=== PATIENT | female | born 1965 | race Caucasian/White ===

== ENCOUNTER 2020-11-19 09:30 | Outpatient (REF) | payer BC, SELFPAY ==
--- NOTE | ~2020-11-19 | MM_ITS ---
EXAMINATION: MM SCREENING DIGITAL BREAST TOMOSYNTHESIS, BILATERAL CLINICAL INFORMATION: Screening. Asymptomatic. The lifetime risk of breast cancer based on the Tyrer-Cuzick Model is 9.8%. COMPARISON: Mammography: 06/28/2019 and studies dating back to 06/26/2007. TECHNIQUE: Digital breast tomosynthesis is performed in both the craniocaudal and mediolateral oblique views along with computer-aided detection (CAD). Synthesized 2D images are generated from the tomosynthesis. FINDINGS: The breasts are heterogeneously dense, which may obscure small masses (ACR BI-RADS breast composition Category c). There is a stable parenchymal pattern of the right breast with no new abnormal dominant mass or suspicious grouping of microcalcifications. Within the deep superior aspect of the left breast, there is a density which has been present to some degree in the past but appears more prominent on today's study, measuring approximately 8 x 5 mm in size, lying approximately 6.5 cm from the nipple. Spot compression view and exaggerated craniocaudal view suggested. MM/MM tomosynthesis screening BI IMPRESSION: Left breast density deep superior aspect for further evaluation as described. ASSESSMENT: BI-RADS 0: Incomplete - Need Additional Imaging Evaluation RECOMMENDATION: 1. Additional views of the left breast. 2. Targeted ultrasound if warranted after review of the additional views. 3. Radiology department staff will contact the patient for additional imaging.
== END 2020-11-19 09:31 | disposition home or self-care (01) ==
LOC: HO.MAMMO 09:30
PROVIDERS: PCP Internal Medicine; Visit Provider Internal Medicine
DX: Z12.31 Encounter for screening mammogram for malignant neoplasm of breast (principal)
CPT/HCPCS: 77063; 77067

== ENCOUNTER 2020-11-27 07:36 | Outpatient (REF) | payer BC, SELFPAY ==
--- NOTE | ~2020-11-27 | MM_ITS ---
EXAMINATION: MM DIAGNOSTIC DIGITAL BREAST TOMOSYNTHESIS, LEFT TARGETED LEFT BREAST ULTRASOUND CLINICAL INFORMATION: Left breast density superiorly. Sister with breast cancer at 40. Sister with ovarian cancer at 39. COMPARISON: Mammography: 11/19/2020 and studies dating back to 08/17/2010 TECHNIQUE: Digital breast tomosynthesis is performed. 2D images are generated from the tomosynthesis. The following views are obtained: 90-degree mediolateral spot compression and exaggerated craniocaudal view. Targeted left breast ultrasound. FINDINGS: The breasts are heterogeneously dense, which may obscure small masses (ACR BI-RADS breast composition Category c). Additional imaging demonstrates an approximately 7 x 3 mm irregularly-marginated density with question of calcifications. This lies approximately 7 cm from the nipple in the upper outer aspect of the left breast. Targeted left breast ultrasound did not demonstrate any abnormal cystic or solid mass. No region of abnormal distal sound shadowing was appreciated. Stereotactic biopsy is recommended. Results are discussed with the patient at time of visit. MM/MM tomosynthesis added views L IMPRESSION: Persistent abnormality about the deep superior aspect of the left breast not identified on ultrasound and for which stereotactic core biopsy is recommended. ASSESSMENT: BI-RADS 4: Suspicious RECOMMENDATION: Stereotactic core biopsy left breast. Referring Polina at provider's office notified of the above recommendation.
--- NOTE | ~2020-11-27 | US_ITS ---
EXAMINATION: US DIAGNOSTIC ULTRASOUND BREAST, LEFT CLINICAL INFORMATION: Density deep superior aspect left breast. COMPARISON: Mammography of November 27, 2020 and studies dating back to August 17, 2010. TECHNIQUE: Ultrasound of the breast is performed with real-time bower scale imaging and color Doppler. FINDINGS: Targeted left breast ultrasound did not demonstrate any abnormal cystic or solid mass. No region of abnormal distal sound shadowing was appreciated. Stereotactic biopsy is recommended. Results are discussed with the patient at time of visit. US/US breast LT limited IMPRESSION: Persistent abnormality about the deep superior aspect of the left breast not identified on ULTRASOUND and for which stereotactic core biopsy is recommended. ASSESSMENT: BI-RADS 4: Suspicious RECOMMENDATION: Stereotactic core biopsy left breast.
== END 2020-11-27 07:37 | disposition home or self-care (01) ==
LOC: HO.MAMMO 07:36
PROVIDERS: Visit Provider Internal Medicine
DX: R92.2 Inconclusive mammogram (principal); Z80.3 Family history of malignant neoplasm of breast
CPT/HCPCS: 76642; 77061; 77065

== ENCOUNTER 2022-05-06 09:49 | Outpatient (REF) | payer BC, SELFPAY ==
[2022-05-06 11:34] LABS: MANUAL DIFF FLAG NO
[2022-05-06 11:43] LABS: Basophils Percent Auto 0.7 % (0-2); Eosinophils Absolute Auto 0.1 X10*3/uL (0.0-0.4); Eosinophils Percent Auto 2.5 % (0-4); Hematocrit 43.7 % (37.0-47.0); Hemoglobin 13.9 g/dl (12.0-16.0); Imm Gran Abs Auto 0.01 X10*3/uL (0.00-0.03); Imm Gran Pct Auto 0.2 % (0.0-0.4); Lymphocytes Absolute Auto 1.7 X10*3/uL (1.2-4.9); Lymphocytes Percent Auto 39.1 % (20-40); Mean Corpuscular HGB Conc 31.8 g/dl (31.0-35.0); Mean Corpuscular Hemoglobin 27.5 pg (27.0-33.0); Mean Corpuscular Volume 86.5 fL (80.0-98.0); Mean Platelet Volume 9.4 fL (9.4-12.3); Monocytes Absolute Auto 0.4 X10*3/uL (0.1-1.2); Monocytes Percent Auto 8.5 % (2-11); Neutrophils Absolute Auto 2.2 x10*3/uL (2.0-8.3); Platelet Count 252 X10*3/uL (160-400); Red Blood Count 5.05 X10*6/uL (4.20-5.50); Red Cell Distribution Width 13.5 % (11.0-16.0); White Blood Count 4.5 X10*3/uL (4.8-10.8)
[2022-05-06 12:12] LABS: Alanine Aminotransferase 18 U/L (0-31); Albumin Level 4.8 g/dL (3.5-5.0); Alkaline Phosphatase 67 U/L (39-117); Anion Gap 17 (12-20); Aspartate Amino Transferase 27 U/L (5-31); Bilirubin Total 0.6 mg/dL (0.0-1.0); Blood Urea Nitrogen 20 mg/dL (9-16); Calcium 9.6 mg/dL (8.4-10.2); Carbon Dioxide 26 mmol/L (22-29); Chloride 102 mmol/L (96-108); Cholesterol 236 mg/dL; Estimated Glomerular Filt Rate > 60; Glucose Fasting 88 mg/dL (60-99); HDL Cholesterol 73 mg/dL; LDL Cholesterol Calculated 147 mg/dl; Potassium 4.5 mmol/L (3.3-5.1); Sodium 140 mmol/L (135-145); Total Protein 7.2 g/dL (6.5-8.0); Triglycerides 83 mg/dL
[2022-05-11 04:33] LABS: Lipoprotein A 250 nmol/L (<75)
== END 2022-05-06 09:50 | disposition home or self-care (01) ==
LOC: HO.HMGCLDS 09:49
PROVIDERS: PCP Internal Medicine; Visit Provider Internal Medicine
DX: Z00.00 Encounter for general adult medical examination without abnormal findings (principal); E78.5 Hyperlipidemia, unspecified
CPT/HCPCS: 36415; 80053; 80061; 83695; 85025

== ENCOUNTER 2023-06-14 12:37 | Outpatient (AMB) | payer BC, SELFPAY ==
--- NOTE | 2023-06-14 13:05 | A.OFFPC_ITS ---
Vital Signs 06/14/23 13:07 Height 5 ft 2.5 in Weight 133 lb BMI 23.9 BP 108/70 Blood Pressure Location Lt brachial Position Sitting Pulse 47 L Pulse Source Pulse Oximeter Pulse Oximetry (%) 99 Oxygen Delivery Method Room Air Intake Visit Reasons: Annual PE Intake Note: Pt is here today for PE. Allergies No Known Allergies Allergy (Verified 06/14/23 13:07) Medication List - Last Reconciled 06/14/23 by Nica Jennings MD multivitamin 1 tab PO DAILY Tobacco use date assessed: 06/14/23 Dental Screening Dental Screen Date: 06/14/23 Did you have a dental visit in the last 12 months?: Yes Did you have a dental problem in the last 6 months where you did not have access to dental care?: No Was dental information given to patient?: Patient has dentist HPI Annual PE HPI Details Patient presents for physical PFSH Medical History Breast density Family History Mother Alzheimer disease Brother Substance use disorder Father Substance use disorder Social History (Updated 06/14/23 @ 13:26 by Nica Jennings MD) 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 1. Little interest or pleasure in doing things: not at all 2. Feeling down, depressed, or hopeless: not at all 3. Trouble falling or staying asleep, or sleeping too much: not at all 4. Feeling tired or having little energy: not at all 5. Poor appetite or overeating: not at all 6. Feeling bad about yourself - or that you are a failure or have let yourself or your family down: not at all 7. Trouble concentrating on things, such as reading the newspaper or watching television: not at all 8. Moving or speaking so slowly that other people could have noticed. Or the opposite - being so fidgety or restless that you have been moving around a lot more than usual: not at all 9. Thoughts that you would be better off or of hurting yourself in some way: not at all Total score: 0 Depression Screening Interpretation: Negative Depression Screening Done: Yes Source: Developed by Drs. Izaiah Lopze, Yahaira Roberts, Dayton Blair and colleagues, with an educational manuelito from [employer]. Thrive Questionnaire Date Thrive assessed: 06/14/23 I am a: Patient What is your living situation today?: I have a steady place to live Within the past 12 months, did the food you bought not last and you didn't have the money to get more?: Never true Within the past 12 months, did you worry whether your food would run out before you got money to buy more?: Never true Do you have trouble paying for medicines?: No Do you have trouble getting transportation to medical appointments?: No Do you have trouble paying your heating and electricity bill?: No Do you have trouble taking care of your child, family member or friend?: No Do you have trouble with day-to-day activities such as bathing, preparing meals, shopping, managing finances, etc.?: No Are you currently unemployed and looking for a job?: No Are you interested in more education?: No Please select the resources that you would like help with: None Currently or been in a relationship where the following occur: no concerns reported AUDIT C Alcohol Use Questionnaire (AUDIT-C) 1. How often do you have a drink containing alcohol?: 2-4 times a month 2. How many drinks containing alcohol do you have on a typical day when you are drinking?: 1 or 2 3. How often do you have six or more drinks on one occasion?: Never Total Score: 2 RIK-7 AMB Questionnaire RIK-7 Date RIK - 7 assessed: 06/14/23 Feeling nervous, anxious, or on edge: 0 = Not at all Not being able to stop or control worryin = Not at all Worrying too much about different things: 0 = Not at all Trouble relaxin = Not at all Being so restless that it is hard to sit still: 0 = Not at all Becoming easily annoyed or irritable: 0 = Not at all Feeling afraid as if something awful might happen: 0 = Not at all Total RIK-7 score (0-4 normal; 5-9 mild; 10-14 moderate; 15-21 severe): 0 Source: Developed by Drs. Izaiah Lopez, Yahaira Roberts, Dayton Blair and colleagues, with an educational manuelito from [employer]. Review of Systems Const All systems reviewed & are unremarkable except as noted in HPI and below Reports no additional complaints Eyes Reports no additional complaints ENT Reports no additional complaints Card Reports no additional complaints Resp Reports no additional complaints GI Reports no additional complaints Reports no additional complaints Physical exam (Primary Care) Vital Signs: Last Vital Signs Pulse 47 L 06/14/23 13:07 BP 108/70 06/14/23 13:07 Pulse Ox 99 06/14/23 13:07 Oxygen Delivery Method Room Air 06/14/23 13:07 BMI result Body Mass Index 23.9 Tobacco/Smoking Status: Tobacco use Status Tobacco use date assessed 06/14/23 06/14/23 13:11 Patient Tobacco Use Status Never used Tobacco 06/14/23 13:11 e-Cigarette/Vaping Use Never Used 06/14/23 13:06 PHQ-9: PHQ-9 Score PHQ-9: Total score 0 06/14/23 13:11 Depression Screening Interpretation: Negative Thrive Assessment: Date of Thrive Assessment Date Thrive assessed 06/14/23 06/14/23 13:11 Currently or been in a relationship where the following occur: no concerns reported Const General: no acute distress HENMT Head: Yes normal to inspection Ears: hearing grossly normal bilaterally Face and sinus: Yes normal facial exam Mouth: Normal oral and palatal mucosa present Throat: Yes posterior oropharynx normal Eyes General: appearance normal, both eyes and all related structures Neck Neck: Yes no lymphadenopathy and Yes supple Resp Effort & Inspection: normal respiratory effort Auscultation: clear to auscultation bilaterally Cardio Rhythm: regular rhythm Heart sounds: S1 normal heart sound present and S2 normal heart sound present GI Inspection: Yes normal to inspection Palpation (GI): Soft to palpation Percussion: Yes normal to percussion Auscultation: normal bowel sounds Assessment and Plan Assessment & Plan (1) Hyperlipemia: Code(s): E78.5 - Hyperlipidemia, unspecified Plan: Continue low-cholesterol diet patient will return for fasting labs (2) Annual physical exam: Code(s): Z00.00 - Encounter for general adult medical examination without abnormal findings Plan: Well-balanced diet regular physical activity, she is up-to-date with 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 Return in 1 year (3) Hx of screening mammography: Comment: [facility] Code(s): Z92.89 - Personal history of other medical treatment (4) Hx of colonoscopy: Comment: at 51 normal Code(s): Z98.890 - Other specified postprocedural states Orders: Orders Lipid Panel Today E78.5 - Hyperlipidemia, unspecified, Z00.00 - Encounter for general adult medical examination without abnormal findings Comprehensive [place]. Panel Fast Today E78.5 - Hyperlipidemia, unspecified, Z00.00 - Encounter for general adult medical examination without abnormal findings Vitamin D 25-OH Total Today E78.5 - Hyperlipidemia, unspecified, Z00.00 - Encounter for general adult medical examination without abnormal findings Complete Blood Count Auto Diff Today E78.5 - Hyperlipidemia, unspecified, Z00.00 - Encounter for general adult medical examination without abnormal findings TSH reflex Free T4 Today E78.5 - Hyperlipidemia, unspecified, Z00.00 - Encounter for general adult medical examination without abnormal findings Coding Level of Care Code Est Pt Prev Care 40-64y(31565) Diagnoses Hyperlipemia E78.5 Annual physical exam Z00.00 Hx of screening mammography Z92.89 Hx of colonoscopy Z98.890
[2023-06-14 13:07] VITALS: BP 108/70; PULSE 47; O2SAT 99; BMI 23.9
== END 2023-06-14 14:01 | disposition home or self-care (01) ==
PROVIDERS: PCP Internal Medicine; Visit Provider Internal Medicine
DX: E78.5 Hyperlipidemia, unspecified (principal); Z00.00 Encounter for general adult medical examination without abnormal findings; Z92.89 Personal history of other medical treatment; Z98.890 Other specified postprocedural states
CPT/HCPCS: 99396

== ENCOUNTER 2023-06-23 09:39 | Outpatient (REF) | payer BC, SELFPAY ==
[2023-06-23 11:12] LABS: MANUAL DIFF FLAG NO
[2023-06-23 11:14] LABS: Basophils Percent Auto 0.6 % (0-2); Eosinophils Absolute Auto 0.1 X10*3/uL (0.0-0.4); Eosinophils Percent Auto 1.8 % (0-4); Hematocrit 39.5 % (37.0-47.0); Hemoglobin 12.6 g/dl (12.0-16.0); Imm Gran Abs Auto 0.02 X10*3/uL (0.00-0.03); Imm Gran Pct Auto 0.4 % (0.0-0.4); Lymphocytes Absolute Auto 1.6 X10*3/uL (1.2-4.9); Lymphocytes Percent Auto 32.5 % (20-40); Mean Corpuscular HGB Conc 31.9 g/dl (31.0-35.0); Mean Corpuscular Hemoglobin 28.3 pg (27.0-33.0); Mean Corpuscular Volume 88.8 fL (80.0-98.0); Mean Platelet Volume 9.8 fL (9.4-12.3); Monocytes Absolute Auto 0.3 X10*3/uL (0.1-1.2); Monocytes Percent Auto 5.9 % (2-11); Neutrophils Absolute Auto 2.9 x10*3/uL (2.0-8.3); Neutrophils Percent Auto 58.8 % (45-73); Platelet Count 253 X10*3/uL (160-400); Red Blood Count 4.45 X10*6/uL (4.20-5.50); Red Cell Distribution Width 13.2 % (11.0-16.0); White Blood Count 4.9 X10*3/uL (4.8-10.8)
[2023-06-23 11:34] LABS: Alanine Aminotransferase 16 U/L (0-31); Albumin Level 4.4 g/dL (3.5-5.0); Alkaline Phosphatase 60 U/L (39-117); Anion Gap 10 (12-20); Aspartate Amino Transferase 30 U/L (5-31); Bilirubin Total 0.7 mg/dL (0.0-1.0); Blood Urea Nitrogen 20 mg/dL (9-16); Calcium 9.7 mg/dL (8.4-10.2); Carbon Dioxide 28 mmol/L (22-29); Chloride 106 mmol/L (96-108); Cholesterol 239 mg/dL (<200); Estimated Glomerular Filt Rate > 60; Glucose Fasting 88 mg/dL (60-99); HDL Cholesterol 64 mg/dL (>40); LDL Cholesterol Calculated 156 mg/dL (<100); Potassium 4.3 mmol/L (3.3-5.1); Sodium 140 mmol/L (135-145); Total Protein 6.6 g/dL (6.5-8.0); Triglycerides 98 mg/dL (<150)
[2023-06-23 11:49] LABS: TSH reflex Free T4 1.87 uIU/mL (0.32-4.0); Vitamin D 25-OH Total 42.3 ng/mL (>30)
[2023-06-29 09:57] LABS: Lipoprotein A 187 nmol/L (<75)
== END 2023-06-23 09:40 | disposition home or self-care (01) ==
LOC: HO.HMGCLDS 09:39
PROVIDERS: PCP Internal Medicine; Visit Provider Internal Medicine
DX: Z00.00 Encounter for general adult medical examination without abnormal findings (principal); E78.5 Hyperlipidemia, unspecified
CPT/HCPCS: 36415; 80053; 80061; 82306; 83695; 84443; 85025

== ENCOUNTER 2023-12-26 08:33 | Outpatient (REF) | payer BC, SELFPAY ==
--- NOTE | ~2023-12-26 | XR_ITS ---
EXAMINATION: XR CHEST CLINICAL INFORMATION: Encounter for general adult medical examination without abnorma COMPARISON: None available. TECHNIQUE: Frontal view of the chest was obtained. FINDINGS: The cardiomediastinal silhouette is within normal limits. The lungs are well expanded. No consolidation. No effusion or pneumothorax. The upper abdomen is unremarkable. XR/XR chest 1V IMPRESSION: No acute cardiopulmonary findings.
== END 2023-12-26 08:34 | disposition home or self-care (01) ==
LOC: HO.MAMMO 08:33
PROVIDERS: Absent Provider Obstetrics & Gynecology; PCP Internal Medicine; Visit Provider Internal Medicine
DX: Z12.31 Encounter for screening mammogram for malignant neoplasm of breast (principal); Z87.01 Personal history of pneumonia (recurrent)
CPT/HCPCS: 71045; 77063; 77067

== ENCOUNTER → 2023-12-26 08:45 | Outpatient (BNV) | payer BC, SELFPAY | PROVIDERS: Absent Provider Obstetrics & Gynecology; PCP Internal Medicine; Visit Provider Radiology Diagnostic Radiology | DX: Z12.31 Encounter for screening mammogram for malignant neoplasm of breast (principal) | CPT/HCPCS: 77063; 77067 ==

== ENCOUNTER 2024-01-04 10:54 | Outpatient (AMB) | payer BC, SELFPAY ==
--- NOTE | 2024-01-04 11:19 | MHC.PC.OV ---
Vital Signs 01/04/24 11:21 Height 5 ft 2.5 in Weight 136 lb BMI 24.5 BP 104/60 Blood Pressure Location Rt brachial Position Sitting Pulse 53 Pulse Source Pulse Oximeter Pulse Oximetry (%) 98 Oxygen Delivery Method Room Air Intake Visit Reasons: F/U pneumonia Intake Note: Pt is here today for a follow up visit on pneumonia. Allergies No Known Allergies Allergy (Verified 01/04/24 11:22) Medication List - Last Reconciled 01/04/24 by Nica Jennings MD multivitamin 1 tab PO DAILY Tobacco use date assessed: 01/04/24 Dental Screening Dental Screen Date: 01/04/24 Did you have a dental visit in the last 12 months?: Yes Did you have a dental problem in the last 6 months where you did not have access to dental care?: No Was dental information given to patient?: Patient has dentist HPI F/U pneumonia HPI Details Pt presents for f/u URI and pneumonia diagnosed 5 weeks ago at urgent care. She was treated with Augmentin Z-Rudolph and prednisone. Patient is feeling better but still with some fatigue when working out at the gym. She denies cough shortness of breath PND night sweats. 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 1. Little interest or pleasure in doing things: not at all 2. Feeling down, depressed, or hopeless: not at all 3. Trouble falling or staying asleep, or sleeping too much: not at all 4. Feeling tired or having little energy: not at all 5. Poor appetite or overeating: not at all 6. Feeling bad about yourself - or that you are a failure or have let yourself or your family down: not at all 7. Trouble concentrating on things, such as reading the newspaper or watching television: not at all 8. Moving or speaking so slowly that other people could have noticed. Or the opposite - being so fidgety or restless that you have been moving around a lot more than usual: not at all 9. Thoughts that you would be better off or of hurting yourself in some way: not at all Total score: 0 Depression Screening Interpretation: Negative Depression Screening Done: Yes Source: Developed by Drs. Izaiah Lopez, Yahaira Roberts, Dayton Blair and colleagues, with an educational manuelito from [employer]. Thrive Questionnaire Date Thrive assessed: 01/04/24 I am a: Patient What is your living situation today?: I have a steady place to live Within the past 12 months, did the food you bought not last and you didn't have the money to get more?: Never true Within the past 12 months, did you worry whether your food would run out before you got money to buy more?: Never true Do you have trouble paying for medicines?: No Do you have trouble getting transportation to medical appointments?: No Do you have trouble paying your heating and electricity bill?: No Do you have trouble taking care of your child, family member or friend?: No Do you have trouble with day-to-day activities such as bathing, preparing meals, shopping, managing finances, etc.?: No Are you currently unemployed and looking for a job?: No Are you interested in more education?: No Please select the resources that you would like help with: None THRIVE Score: 0 AUDIT C Alcohol Use Questionnaire (AUDIT-C) 1. How often do you have a drink containing alcohol?: 2-3 times a week 2. How many drinks containing alcohol do you have on a typical day when you are drinking?: 1 or 2 3. How often do you have six or more drinks on one occasion?: Never Total Score: 3 RIK-7 AMB Questionnaire RIK-7 Date RIK - 7 assessed: 01/04/24 Feeling nervous, anxious, or on edge: 0 = Not at all Not being able to stop or control worryin = Not at all Worrying too much about different things: 0 = Not at all Trouble relaxin = Not at all Being so restless that it is hard to sit still: 0 = Not at all Becoming easily annoyed or irritable: 0 = Not at all Feeling afraid as if something awful might happen: 0 = Not at all Total RIK-7 score (0-4 normal; 5-9 mild; 10-14 moderate; 15-21 severe): 0 Source: Developed by Drs. Izaiah Lopez, Yahaira Roberts, Dayton Blair and colleagues, with an educational manuelito from [employer]. Review of Systems Const All systems reviewed & are unremarkable except as noted in HPI and below ENT Reports no additional complaints Card Reports no additional complaints Resp Reports no additional complaints GI Reports no additional complaints Physical exam (Primary Care) Vital Signs: Last Vital Signs Pulse 53 01/04/24 11:21 BP 104/60 01/04/24 11:21 Pulse Ox 98 01/04/24 11:21 Oxygen Delivery Method Room Air 01/04/24 11:21 BMI result Body Mass Index 24.5 Tobacco/Smoking Status: Tobacco use Status Tobacco use date assessed 01/04/24 01/04/24 11:25 Patient Tobacco Use Status Never used Tobacco 01/04/24 11:25 e-Cigarette/Vaping Use Never Used 01/04/24 11:25 PHQ-9: PHQ-9 Score PHQ-9: Total score 0 01/04/24 11:25 Depression Screening Interpretation: Negative Thrive Assessment: Date of Thrive Assessment Date Thrive assessed 01/04/24 01/04/24 11:25 Const General: no acute distress HENMT Head: Yes normal to inspection Mouth: Normal oral and palatal mucosa present Eyes General: appearance normal, both eyes and all related structures Neck Neck: Yes no lymphadenopathy and Yes supple Resp Effort & Inspection: normal respiratory effort Auscultation: clear to auscultation bilaterally Cardio Rhythm: regular rhythm Heart sounds: S1 normal heart sound present and S2 normal heart sound present Assessment and Plan Assessment & Plan (1) Annual physical exam: Code(s): Z00.00 - Encounter for general adult medical examination without abnormal findings (2) History of pneumonia: Code(s): Z87.01 - Personal history of pneumonia (recurrent) Plan: Repeated chest x-ray results are pending Orders: Orders Complete Blood Count Auto Diff 6 Months E78.5 - Hyperlipidemia, unspecified, Z00.00 - Encounter for general adult medical examination without abnormal findings Lipid Panel 6 Months E78.5 - Hyperlipidemia, unspecified, Z00.00 - Encounter for general adult medical examination without abnormal findings Comprehensive [place]. Panel Fast 6 Months E78.5 - Hyperlipidemia, unspecified, Z00.00 - Encounter for general adult medical examination without abnormal findings Vitamin D 25-OH Total 6 Months E78.5 - Hyperlipidemia, unspecified, Z00.00 - Encounter for general adult medical examination without abnormal findings TSH reflex Free T4 6 Months E78.5 - Hyperlipidemia, unspecified, Z00.00 - Encounter for general adult medical examination without abnormal findings Coding Level of Care Code Est Pt Level 3 (40886) Diagnoses Annual physical exam Z00.00 History of pneumonia Z87.01
[2024-01-04 11:21] VITALS: BP 104/60; PULSE 53; O2SAT 98; BMI 24.5
== END 2024-01-04 12:36 | disposition home or self-care (01) ==
PROVIDERS: PCP Internal Medicine; Visit Provider Internal Medicine
DX: R53.83 Other fatigue (principal); Z87.01 Personal history of pneumonia (recurrent)
CPT/HCPCS: 99213

== ENCOUNTER 2024-07-24 11:29 | Outpatient (AMB) | payer BC, SELFPAY ==
[2024-07-24 11:45] VITALS: BP 100/62; PULSE 49; O2SAT 99; BMI 24.5
--- NOTE | 2024-07-24 11:45 | A.OFFPC_ITS ---
Vital Signs 07/24/24 11:45 Height 5 ft 2.5 in Weight 136 lb BMI 24.5 BP 100/62 Blood Pressure Location Rt brachial Position Sitting Pulse 49 L Pulse Source Pulse Oximeter Pulse Oximetry (%) 99 Oxygen Delivery Method Room Air Intake Visit Reasons: Annual Intake Note: Pt is here today for PE. Allergies No Known Allergies Allergy (Verified 07/24/24 11:58) Medication List - Last Reconciled 07/24/24 by Nica Jennings MD multivitamin 1 tab PO DAILY Tobacco use date assessed: 07/24/24 Dental Screening Dental Screen Date: 01/04/24 HPI Annual HPI Details Pt presents for PE. 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 1. Little interest or pleasure in doing things: not at all 2. Feeling down, depressed, or hopeless: not at all 3. Trouble falling or staying asleep, or sleeping too much: not at all 4. Feeling tired or having little energy: not at all 5. Poor appetite or overeating: not at all 6. Feeling bad about yourself - or that you are a failure or have let yourself or your family down: not at all 7. Trouble concentrating on things, such as reading the newspaper or watching television: not at all 8. Moving or speaking so slowly that other people could have noticed. Or the opposite - being so fidgety or restless that you have been moving around a lot more than usual: not at all 9. Thoughts that you would be better off or of hurting yourself in some way: not at all Total score: 0 Depression Screening Interpretation: Negative Depression Screening Done: Yes 46535 - PHQ-9 Billing: Yes Source: Developed by Drs. Izaiah Lopez, Yahaira Roberts, Dayton Blair and colleagues, with an educational manuelito from [employer]. Thrive Questionnaire Date Thrive assessed: 07/24/24 I am a: Patient What is your living situation today?: I have a steady place to live Within the past 12 months, did the food you bought not last and you didn't have the money to get more?: I choose not to answer this question Within the past 12 months, did you worry whether your food would run out before you got money to buy more?: I choose not to answer this question Do you have trouble paying for medicines?: I choose not to answer this question Do you have trouble getting transportation to medical appointments?: I choose not to answer this question Do you have trouble paying your heating and electricity bill?: I choose not to answer this question Do you have trouble taking care of your child, family member or friend?: I cho ose not to answer this question Do you have trouble with day-to-day activities such as bathing, preparing meals, shopping, managing finances, etc.?: I choose not to answer this question Are you currently unemployed and looking for a job?: I choose not to answer this question Are you interested in more education?: I choose not to answer this question Please select the resources that you would like help with: None Currently or been in a relationship where the following occur: I choose not to answer THRIVE Score: 0 AUDIT C Alcohol Use Questionnaire (AUDIT-C) 1. How often do you have a drink containing alcohol?: 2-3 times a week 2. How many drinks containing alcohol do you have on a typical day when you are drinking?: 1 or 2 3. How often do you have six or more drinks on one occasion?: Never Total Score: 3 RIK-7 AMB Questionnaire RIK-7 Date RIK - 7 assessed: 07/24/24 Feeling nervous, anxious, or on edge: 1 = Several days Not being able to stop or control worryin = Not at all Worrying too much about different things: 0 = Not at all Trouble relaxin = Not at all Being so restless that it is hard to sit still: 0 = Not at all Becoming easily annoyed or irritable: 0 = Not at all Feeling afraid as if something awful might happen: 0 = Not at all Total RIK-7 score (0-4 normal; 5-9 mild; 10-14 moderate; 15-21 severe): 1 Source: Developed by Drs. Izaiah Lopez, Yahaira Roberts, Dayton Blair and colleagues, with an educational manuelito from [employer]. RIK-7 Assessment Billing RIK-7 Assessment Tool: RIK-7 Assessment 96587 Review of Systems Const All systems reviewed & are unremarkable except as noted in HPI and below Reports no additional complaints Eyes Reports no additional complaints ENT Reports no additional complaints Card Reports no additional complaints Resp Reports no additional complaints GI Reports no additional complaints Reports no additional complaints Physical exam (Primary Care) Vital Signs: Last Vital Signs Pulse 49 L 07/24/24 11:45 BP 100/62 07/24/24 11:45 Pulse Ox 99 07/24/24 11:45 Oxygen Delivery Method Room Air 07/24/24 11:45 BMI result Body Mass Index 24.5 Tobacco/Smoking Status: Tobacco use Status Tobacco use date assessed 07/24/24 07/24/24 12:00 Patient Tobacco Use Status Never used Tobacco 07/24/24 11:45 e-Cigarette/Vaping Use Never Used 07/24/24 11:45 PHQ-9: PHQ-9 Score PHQ-9: Total score 0 07/24/24 12:00 Depression Screening Interpretation: Negative Thrive Assessment: Date of Thrive Assessment Date Thrive assessed 07/24/24 07/24/24 12:00 Currently or been in a relationship where the following occur: I choose not to answer Const General: no acute distress HENMT Head: Yes normal to inspection Ears: hearing grossly normal bilaterally Face and sinus: Yes normal facial exam Mouth: Normal oral and palatal mucosa present Eyes General: appearance normal, both eyes and all related structures Neck Neck: Yes no lymphadenopathy and Yes supple Resp Effort & Inspection: normal respiratory effort Auscultation: clear to auscultation bilaterally Cardio Rhythm: regular rhythm Heart sounds: S1 normal heart sound present and S2 normal heart sound present GI Inspection: Yes normal to inspection Palpation (GI): Soft to palpation Percussion: Yes normal to percussion Auscultation: normal bowel sounds Back/Spine/Pelvis Other: Right upper back 10 by 6 cm lipoma Coding Level of Care Code Est Pt Prev Care 40-64y(83627) Diagnoses Hyperlipemia E78.5 Annual physical exam Z00.00 Hx of colonoscopy Z98.890 Lipoma of back D17.1 Additional Codes RIK-7 Assessment Billing - RIK-7 Assessment Tool: RIK-7 Assessment 49468 ([id number]) PHQ-9 - 95140 - PHQ-9 Billing: Yes ([id number]) Assessment & Plan Assessment & Plan (1) Hyperlipemia: Comment: Diet controlled, patient declined statins Code(s): E78.5 - Hyperlipidemia, unspecified Category: Medical Plan: Continue low-cholesterol diet patient will return for fasting blood work (2) Annual physical exam: Code(s): Z00.00 - Encounter for general adult medical examination without abnormal findings Category: Medical Plan: Well-balanced diet regular physical activity discussed with the patient she will schedule mammogram an appointment with patient support tech (3) Hx of colonoscopy: Comment: at 51 normal Code(s): Z98.890 - Other specified postprocedural states Category: Surgical Plan: Up-to-date loss colonoscopy (4) Lipoma of back: Comment: Right upper back Code(s): D17.1 - Benign lipomatous neoplasm of skin and subcutaneous tissue of trunk Category: Medical Plan: Patient is a referral to general surgeon but will check with her insurance Orders: Orders Lipid Panel Today E78.5 - Hyperlipidemia, unspecified, Z00.00 - Encounter for general adult medical examination without abnormal findings Comprehensive [place]. Panel Fast Today E78.5 - Hyperlipidemia, unspecified, Z00.0 0 - Encounter for general adult medical examination without abnormal findings Complete Blood Count Auto Diff Today E78.5 - Hyperlipidemia, unspecified, Z00.00 - Encounter for general adult medical examination without abnormal findings TSH reflex Free T4 Today E78.5 - Hyperlipidemia, unspecified, Z00.00 - Encounter for general adult medical examination without abnormal findings
== END 2024-07-24 12:28 | disposition home or self-care (01) ==
PROVIDERS: PCP Internal Medicine; Visit Provider Internal Medicine
DX: E78.5 Hyperlipidemia, unspecified (principal); Z00.00 Encounter for general adult medical examination without abnormal findings; Z98.890 Other specified postprocedural states; D17.1 Benign lipomatous neoplasm of skin and subcutaneous tissue of trunk

== ENCOUNTER → 2024-07-24 11:29 | Outpatient (BNVA) | payer BC, SELFPAY | PROVIDERS: PCP Internal Medicine; Visit Provider Internal Medicine | DX: Z00.01 Encounter for general adult medical examination with abnormal findings (principal); E78.5 Hyperlipidemia, unspecified; D17.1 Benign lipomatous neoplasm of skin and subcutaneous tissue of trunk | CPT/HCPCS: 96127 ==

== ENCOUNTER 2024-12-28 12:32 | Outpatient (REF) | payer BC, SELFPAY | END 2024-12-28 12:33 | disposition home or self-care (01) | LOC: HO.MAMMO 12:32 | PROVIDERS: PCP Internal Medicine; Referring Provider Obstetrics & Gynecology; Visit Provider Internal Medicine | DX: Z12.31 Encounter for screening mammogram for malignant neoplasm of breast (principal) | CPT/HCPCS: 77063; 77067 ==

== ENCOUNTER → 2024-12-28 12:45 | Outpatient (BNV) | payer BC, SELFPAY | PROVIDERS: PCP Internal Medicine; Referring Provider Obstetrics & Gynecology; Visit Provider Internal Medicine | DX: Z12.31 Encounter for screening mammogram for malignant neoplasm of breast (principal) | CPT/HCPCS: 77063; 77067 ==

== ENCOUNTER 2025-06-26 08:15 | Outpatient (REF) | payer BC, SELFPAY ==
[2025-06-26 08:26] LABS: MANUAL DIFF FLAG NO
[2025-06-26 08:39] LABS: Hematocrit 42.9 % (37.0-47.0); Hemoglobin 13.7 g/dl (12.0-16.0); Imm Gran Abs Auto 0.02 X10*3/uL (0.00-0.03); Imm Gran Pct Auto 0.3 % (0.0-0.4); Lymphocytes Absolute Auto 1.7 X10*3/uL (1.2-4.9); Mean Corpuscular HGB Conc 31.9 g/dl (31.0-35.0); Mean Corpuscular Hemoglobin 28.0 pg (27.0-33.0); Mean Corpuscular Volume 87.6 fL (80.0-98.0); NRBC Abs Auto 0.000 X10*3/uL (0.0-0.012); NRBC Pct Auto 0.0 /100WBC (0.0-0.2); Platelet Count 270 X10*3/uL (160-400); Red Blood Count 4.90 X10*6/uL (4.20-5.50); White Blood Count 7.4 X10*3/uL (4.8-10.8)
[2025-06-26 09:09] LABS: Appearance Urine Clear; Glucose Urine UA Negative (Negative); PH 7.0 (5.0-9.0); Specific Gravity - Urine 1.020 (1.005-1.025)
[2025-06-26 09:16] LABS: Alanine Aminotransferase 28 U/L (0-31); Albumin Level 5.2 g/dL (3.5-5.0); Alkaline Phosphatase 57 U/L (39-117); Anion Gap 12 (12-20); Aspartate Amino Transferase 35 U/L (5-31); Blood Urea Nitrogen 22 mg/dL (9-16); Calcium 9.6 mg/dL (8.4-10.2); Carbon Dioxide 27 mmol/L (22-29); Chloride 105 mmol/L (96-108); Cholesterol 288 mg/dL (<200); Estimated Glomerular Filt Rate 57; HDL Cholesterol 77 mg/dL (>40); Potassium 4.1 mmol/L (3.3-5.1); Sodium 140 mmol/L (135-145); Total Protein 7.6 g/dL (6.5-8.0); Triglycerides 134 mg/dL (<150)
== END 2025-06-26 08:16 | disposition home or self-care (01) ==
LOC: HO.LAB 08:15
PROVIDERS: PCP Internal Medicine; Visit Provider Internal Medicine
DX: Z00.00 Encounter for general adult medical examination without abnormal findings (principal); Z13.21 Encounter for screening for nutritional disorder; E78.5 Hyperlipidemia, unspecified
CPT/HCPCS: 36415; 80053; 80061; 81001; 82306; 84443; 85025

== ENCOUNTER 2025-07-25 13:05 | Outpatient (AMB) | payer BC, SELFPAY ==
--- OUTSIDE RECORDS SUMMARY | 2023-11-09 08:09 | XMS_ITS | Encounter Summary ---
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 Operator Name Role Phone Nica Jennings MD Primary Care Provider [phone] Encounter Details Date Type Department Care Team (Late st Contact Info) Description 11/09/2023 9:09 AM EDT Hospital Encounter [facility] [address] [place] [id number] Yael Wise PA-C [address] [facility] [place] [address] [email or web address] Social History Tobacco Use Types Packs/Day Years Used Date Smoking Tobacco: Never Smokeless Tobacco: Never Alcohol Use Standard Drinks/Week Comments Yes 5 (1 standard drink = 0.6 oz pur e alcohol) Education Answer Date Recorded Are you interested in more education? Not on marylou e 12/03/2022 Are you concerned about learning? Not on file 12/03/2022 No 12/03/2022 No 12/03/2022 Digital Access Answer Date Recorded No 01/01/2023 No 01/01/2023 Reliable internet access at home? Not on file 01/01/2023 Device with a working camera? Not on file Comments Unknown Sex and Gender Information Value Date Recorded Sex Assigned at Female 11/08/2024 8:20 PM EDT Legal Sex Female 4:51 PM EDT Gender Identity Female 11/08/2024 8:20 PM EDT Sexual Orientation Not on file documented as of this encounter Plan of Treatment Not on file documented as of this encounter Procedures Procedure Name Priority Date/Time Associated Diagnosis Comments XR CHEST PA AND LATERAL 2 VIEWS Routine 11/09/2023 9:13 AM EDT Pneumonia due to COVID-19 virus documented in this encounter Results * XR CHEST PA AND LATERAL 2 VIEWS (11/09/2023 9:13 AM EDT) Anatomical Region Laterality Modality Chest Computed Radiogr aphy 11/09/2023 9:17 AM EDT Impressions 11/09/2023 9:32 AM EDT Patchy nodular left midlung opacity, may represent pneumonia or nodule. Recommend 6-8 week follow-up chest x-ray to evaluate evolution. If still present then, recommend subsequent CT. A clinically significant result was communicated on 11/09/2023 9:32 AM, Message ID [id number]. ATTESTATION: I, Triston Al as teaching physician, have reviewed the images for this case and if necessary edited the report originally created by Ellis Boucher. Narrative 11/09/2023 9:32 AM EDT XR CHEST PA AND LATERAL 2 VIEWS Referring clinician's provided indication for this examination in [facility]: Cough; cough x 1 week, s/p covid last week COMPARISON: None FINDINGS: Devices/Tubes/Lines: None. Lungs: Patchy nodular left midlung opacity. Pleura: No pneumothorax or evident pleural effusion. Heart/Mediastinum: Cardiac silhouette size is within normal limits. Bones/Soft Tissues: Mild degenerative changes of the spine. Procedure Note Triston Al MD, PhD - 11/09/2023 XR CHEST PA AND LATERAL 2 VIEWS Referring clinician's provided indication for this examination in [facility]:Cough; cough x 1 week, s/p covid last week COMPARISON: None FINDINGS: Devices/Tubes/Lines: None. Lungs: Patchy nodular left midlung opacity. Pleura: No pneumothorax or evident pleural effusion. Heart/Mediastinum: Cardiac silhouette size is within normal limits. Bones/Soft Tissues: Mild degenerative changes of the spine. IMPRESSION: Patchy nodular left midlung opacity, may represent pneumonia or nodule.Recommend 6-8 week follow-up chest x-ray to evaluate evolution. If stillpresent then, recommend subsequent CT. A clinically significant result was communicated on 11/09/2023 9:32 AM,Message ID [id number]. ATTESTATION: I, Triston Al as teaching physician, have reviewed theimages for this case and if necessary edited the report originally createdby Ellis Boucher. Yael Wise PA-C IMG XR CHEST Final Result documented in this encounter Visit Diagnoses Not on filedocumented in this encounter Care Teams Heavy Duty Press Operator Relationship Specialty Start Date End Date Nica Jennings MD [address] [place] [id number] PCP - General Internal Medicine 08/11/20 07/21/25 documented as of this encounter Additional Source Comments The information contained in this document represents components of the legal health record. It is not the complete legal health record.[facility]
--- OUTSIDE RECORDS SUMMARY | 2025-07-22 09:50 | XMS_ITS | Encounter Summary ---
Author Organization [facility] Address [address] [place] [id number] Phone Care Team Providers Care Metal Fabrication Supervisor Name Role Phone Nica Jennings MD Primary Care Provider Reason for Visit * Reason Comments Hand Injury Patient is In office with right hand injury while skiing. Encounter Details Date Type Department Care Team (Late st Contact Info) Description 07/22/2025 9:50 AM EST Office Visit [facility] at [address] [address] Rachael Moura PA-C [address] [place] [id number] [email or web address] Hand injury, right, initial encounter (Primary Dx) Social History Tobacco Use Types Packs/Day Years [...] on file documented as of this encounter Progress Notes * Rachael Moura PA-C - 07/22/2025 9:50 AM EST Images from the original note were not included. Subjective: Patient ID: Dianne Mary is a 60 y.o. female. 60-year-old female here with right hand pain x 2 days after fall while skiing on 07/20/2025. She has tried OTC medications and R.I.C.E therapy. Currently wearing a brace. 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 Hand Injury Review of Systems Musculoskeletal: Positive for joint pain and joint swelling. There were no vitals filed for this visit. Objective: Physical Exam Musculoskeletal: Comments: R hand: Swelling noted to dorsal aspect of right hand overlying 1st MCP to 3rd MCP. Tenderness localized to 1st MCP. Pain with ROM of R thumb. No snuffbox tenderness. Wrist nontender. Normal range of motion of wrist without pain. No results found for this visit on 07/22/25. Procedure: Procedures Assessment/Plan: Diagnosis Plan 1. Hand injury, right, initial encounter XR Hand (Right) Assessment and Plan: Here with right hand pain after fall while skiing 07/20/2025. X-ray showed no acute fracture or dislocation. No significant degenerative changes. Continue NSAIDs as needed for pain, ice, elevation. documented in this encounter Plan of Treatment Not on file documented as of this encounter Procedures Procedure Name Priority Date/Time Associated Diagnosis Comments XR HAND 3 OR MORE VIEWS (RIGHT) Urgent/patient waiting 07/22/2025 10:08 AM EST Hand injury, right, initial encounter documented in this encounter Results * XR HAND 3 OR MORE VIEWS (RIGHT) (07/22/2025 10:08 AM EST) Anatomical Region Laterality Modality Hand Right Computed Radiogr aphy 07/22/2025 11:1 5 AM EST Impressions 07/22/2025 11:17 AM EST No acute fracture or dislocation. No significant degenerative changes. Well-corticated ossific density adjacent to the radial styloid, which may represent an ossicle or sequela of remote trauma. No soft tissue swelling. Narrative 07/22/2025 11:17 AM EST XR HAND 3 OR MORE VIEWS (RIGHT) Referring clinician's provided indication for this examination in Epic: Pain COMPARISON: None. Procedure Note Padilla Sigala MD - 07/22/2025 XR HAND 3 OR MORE VIEWS (RIGHT) Referring clinician's provided indication for this examination in Epic:Pain COMPARISON: None. IMPRESSION: No acute fracture or dislocation. No significant degenerative changes.Well- corticated ossific density adjacent to the radial styloid, which mayrepresent an ossicle or sequela of remote trauma. No soft tissueswelling. Rachael Moura PA-C IMG XR UPPER EXTREMITY Fin al Result documented in this encounter Visit Diagnoses Diagnosis Hand injury, right, initial encounter- Primary documented in this encounter Care Teams Metal Fabrication Supervisor Relationship Specialty Start Date End Date Nica Jennings MD [address] [place] [id number] PCP - General Internal Medicine 07/22/25 documented as of this encounter Additional Source Comments The information contained in this document represents components of the legal health record. It is not the complete legal health record.[facility]
--- OUTSIDE RECORDS SUMMARY | 2025-07-22 10:01 | XMS_ITS | Encounter Summary ---
Author Organization [facility] Address [address] [place] [address] [place], [place] [id number] Phone Care Team Providers Care Restorer Paper And Prints Name Role Phone Nica Jennings MD Primary Care Provider [phone] Encounter Details Date Type Department Care Team (Latest Contact Info) Description 07/22/2025 10:01 AM EST - 07/22/2025 11:59 PM [facility] Hospital Encounter [facility], X-Ray - [address] [address] Rachael Moura PA-C [address] [place] [phone] [email or web address] Arrived Discharge Disposition: Home or Self Care Social History Tobacco Use Types Packs/Day Years [...] clinician's provided indication for this examination in [facility]: Pain COMPARISON: None. Procedure Note Padilla Sigala MD - 07/22/2025 XR HAND 3 OR MORE VIEWS (RIGHT) Referring clinician's provided indication for this examination in [facility]:Pain COMPARISON: None. IMPRESSION: No acute fracture or dislocation. No significant degenerative changes.Well- corticated ossific density adjacent to the radial styloid, which mayrepresent an ossicle or sequela of remote trauma. No soft tissueswelling. Rachael Moura PA-C IMG XR UPPER EXTREMITY Fin al Result documented in this encounter Visit Diagnoses Not on filedocumented in this encounter Care Teams Restorer Paper And Prints Relationship Specialty Start Date End Date Nica Jennings MD [facility] [place] [address] PCP - General Internal Medicine 07/22/25 documented as of this encounter Additional Source Comments The information contained in this document represents components of the legal health record. It is not the complete legal health record.[facility]
[2025-07-25 13:14] VITALS: BP 118/70; PULSE 47; RESP 16; TEMP 36.7; O2SAT 98; BMI 24.3
--- NOTE | 2025-07-25 13:14 | A.OFFPC_ITS ---
Vital Signs 07/25/25 13:14 Height 5 ft 2.5 in Weight 135 lb BMI 24.3 BP 118/70 Blood Pressure Location Lt brachial Position Sitting Respiration 16 Pulse 47 L Pulse Source Pulse Oximeter Temp 98.0 F Temp Source Oral Pulse Oximetry (%) 98 Oxygen Delivery Method Room Air Intake Visit Reasons: Annual PE Intake Note: Pt is here today for PE. Allergies No Known Allergies Allergy (Verified 07/25/25 13:16) Medication List - Last Reconciled 07/25/25 by Nica Jennings MD multivitamin 1 tab PO DAILY Tobacco use date assessed: 07/25/25 Dental Screening Dental Screen Date: 07/25/25 Did you have a dental visit in the last 12 months?: Yes Did you have a dental problem in the last 6 months where you did not have access to dental care?: No Was dental information given to patient?: Patient has dentist HPI Annual PE HPI Details Patient presents for physical PFSH Medical History Hyperlipemia Breast density Surgical History No pertinent past surgical history Family History Mother Alzheimer disease Brother Substance use disorder Father Substance use disorder Social History 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 1. Little interest or pleasure in doing things: not at all 2. Feeling down, depressed, or hopeless: not at all 3. Trouble falling or staying asleep, or sleeping too much: not at all 4. Feeling tired or having little energy: not at all 5. Poor appetite or overeating: not at all 6. Feeling bad about yourself - or that you are a failure or have let yourself or your family down: not at all 7. Trouble concentrating on things, such as reading the newspaper or watching television: not at all 8. Moving or speaking so slowly that other people could have noticed. Or the opposite - being so fidgety or restless that you have been moving around a lot more than usual: not at all 9. Thoughts that you would be better off or of hurting yourself in some way: not at all Total score: 0 Depression Screening Interpretation: Negative Depression Screening Done: Yes 83679 - PHQ-9 Billing: Yes Source: Developed by Drs. Izaiah Lopez, Yahaira Roberts, Dayton Blair and colleagues, with an educational manuelito from [employer]. Thrive Questionnaire Date Thrive assessed: 07/25/25 I am a: Patient What is your living situation today?: I have a steady place to live Within the past 12 months, did the food you bought not last and you didn't have the money to get more?: Never true Within the past 12 months, did you worry whether your food would run out before you got money to buy more?: Never true Do you have trouble paying for medicines?: No Do you have trouble getting transportation to medical appointments?: No Do you have trouble paying your heating and electricity bill?: No Do you have trouble taking care of your child, family member or friend?: No Do you have trouble with day-to-day activities such as bathing, preparing meals, shopping, managing finances, etc.?: No Are you currently unemployed and looking for a job?: No Are you interested in more education?: No Please select the resources that you would like help with: None Currently or been in a relationship where the following occur: No concerns reported THRIVE Score: 0 AUDIT C Alcohol Use Questionnaire (AUDIT-C) 1. How often do you have a drink containing alcohol?: 2-3 times a week 2. How many drinks containing alcohol do you have on a typical day when you are drinking?: 1 or 2 3. How often do you have six or more drinks on one occasion?: Never Total Score: 3 RIK-7 AMB Questionnaire RIK-7 Date RIK - 7 assessed: 07/25/25 Feeling nervous, anxious, or on edge: 1 = Several days Not being able to stop or control worryin = Not at all Worrying too much about different things: 0 = Not at all Trouble relaxin = Several days Being so restless that it is hard to sit still: 0 = Not at all Becoming easily annoyed or irritable: 1 = Several days Feeling afraid as if something awful might happen: 0 = Not at all Total RIK-7 score (0-4 normal; 5-9 mild; 10-14 moderate; 15-21 severe): 3 Source: Developed by Drs. Izaiah Lopez, Yahaira Roberts, Dayton Blair and colleagues, with an educational manuelito from [employer]. RIK-7 Assessment Billing RIK-7 Assessment Tool: RIK-7 Assessment 50850 Review of Systems Const All systems reviewed & are unremarkable except as noted in HPI and below Eyes Reports no additional complaints ENT Reports no additional complaints Card Reports no additional complaints Resp Reports no additional complaints GI Reports no additional complaints Reports no additional complaints Physical exam (Primary Care) Vital Signs: Last Vital Signs Temp 98.0 F 07/25/25 13:14 Pulse 47 L 07/25/25 13:14 Resp 16 07/25/25 13:14 BP 118/70 07/25/25 13:14 Pulse Ox 98 07/25/25 13:14 Oxygen Delivery Method Room Air 07/25/25 13:14 BMI result Body Mass Index 24.3 Tobacco/Smoking Status: Tobacco use Status Tobacco use date assessed 07/25/25 07/25/25 13:19 Patient Tobacco Use Status Never used Tobacco 07/25/25 13:19 e-Cigarette/Vaping Use Never Used 07/25/25 13:19 PHQ-9: PHQ-9 Score PHQ-9: Total score 0 07/25/25 13:19 Depression Screening Interpretation: Negative Thrive Assessment: Date of Thrive Assessment Date Thrive assessed 07/25/25 07/25/25 13:19 Currently or been in a relationship where the following occur: No concerns reported Const General: no acute distress HENMT Head: Yes normal to inspection Ears: TM's normal bilaterally Face and sinus: Yes normal facial exam Mouth: Normal oral and palatal mucosa present Eyes General: appearance normal, both eyes and all related structures Neck Neck: Yes no lymphadenopathy and Yes supple Resp Effort & Inspection: normal respiratory effort Auscultation: clear to auscultation bilaterally Cardio Rhythm: regular rhythm Heart sounds: S1 normal heart sound present and S2 normal heart sound present GI Inspection: Yes normal to inspection Palpation (GI): Soft to palpation Percussion: Yes normal to percussion Auscultation: normal bowel sounds Coding Level of Care Code Est Pt Prev Care 40-64y(25510) Diagnoses Hyperlipemia E78.5 Annual physical exam Z00.00 Additional Codes RIK-7 Assessment Billing - RIK-7 Assessment Tool: RIK-7 Assessment 01910 ([id number]) PHQ-9 - 45912 - PHQ-9 Billing: Yes ([id number]) Assessment & Plan Assessment & Plan (1) Hyperlipemia: Comment: Diet controlled, patient declined statins Code(s): E78.5 - Hyperlipidemia, unspecified Category: Medical Plan: Patient will have CT coronary calcium score to evaluate for any calcification to decide about treating hyperlipidemia. Patient will repeat lipid profile in 2 months after low-cholesterol diet (2) Annual physical exam: Code(s): Z00.00 - Encounter for general adult medical examination without abnormal findings Category: Medical Plan: Well-balanced diet regular physical activity discussed with the patient. She is up-to-date with the mammogram colonoscopy and Pap smear by fruit or nut grower Orders: Orders LDL Cholesterol Direct 2 Months E78.5 - Hyperlipidemia, unspecified Lipid Panel 2 Months E78.5 - Hyperlipidemia, unspecified Complete Blood Count Auto Diff 1 Year E78.5 - Hyperlipidemia, unspecified, Z00.00 - Encounter for general adult medical examination without abnormal findings Lipid Panel 1 Year E78.5 - Hyperlipidemia, unspecified, Z00.00 - Encounter for general adult medical examination without abnormal findings Vitamin D 25-OH Total 1 Year E78.5 - Hyperlipidemia, unspecified, Z00.00 - Encounter for general adult medical examination without abnormal findings UA w Microscopic 1 Year E78.5 - Hyperlipidemia, unspecified, Z00.00 - Encounter for general adult medical examination without abnormal findings CT Coronary Calcium Score Today E78.5 - Hyperlipidemia, unspecified Comprehensive Met. Panel 1 Year E78.5 - Hyperlipidemia, unspecified, Z00.00 - Encounter for general adult medical examination without abnormal findings TSH reflex Free T4 1 Year E78.5 - Hyperlipidemia, unspecified, Z00.00 - Encounter for general adult medical examination without abnormal findings
--- OUTSIDE RECORDS SUMMARY | 2025-07-25 17:02 | XMS_ITS | Patient Health Record ---
Author Organization 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 alcohol Problems Problem Type SNOMED Code ICD Code Onset Dates Problem Status W/U Status Risk Notes Problem Screening for malignant neoplasm of colon (004682487) Encounter for screening for malignant neoplasm of colon (Z12.11) Active confirmed Problem Screening for malignant neoplasm of rectum (032508670) Encounter for screening for malignant neoplasm of rectum (Z12.12) Active confirmed Problem Preprocedural examination (722345987425205) Preprocedural examination (Z01.818) Active confirmed Plan Of Treatment Future Test Test Name Order Date COLONOSCOPY 07/23/2016 Insurance Providers Payer Name Payer Address Payer Phone Subscriber Number Group Number Insured Name Patient Relationship to Insured Coverage Start Date Coverage End Date [facility] [address] [facility] [phone] [id number] ERROL HUNG Self - patient is the insured Medical (General) History Medical History History ICD Code Denies [place],DM,CVA,Lung disease,renal dise ase
--- OUTSIDE RECORDS SUMMARY | 2025-07-25 17:02 | XMS_ITS | Clinical Summary ---
Author Organization [facility] Address [address] [place] [address] [place] [address] Phone Care Team Providers Care Hospice Superintendent Name Role Phone Nica Jennings MD Primary Care Provider [phone] Allergies No known active allergies Medications No known medications Active Problems Problem Noted Date Diagnosed Date [facility] on back 08/07/2024 Encounters Date Type Department Care Team Description 07/22/2025 10:01 AM EST - 07/22/2025 11:59 PM EST Hospital Encounter [facility], X-Ray - [address] [address] Rachael Moura, PA-C Arrived Discharge Disposition: Home or Self Care 07/22/2025 9:50 AM EST Office Visit [facility] Ur[facility] Care at [address] [address] Rachael Moura, PA-C Hand injury, right, initial encounter (Primary Dx) from Last 3 Months Immunizations Immunization Administration Dates Next Due COVID-19 (Pre-05/30) Moderna Vaccine, mRNA, PF 08/06/2021,09/05/2020,08/07/2020 DTP 02/14/1969, 7,1966,07/22 Hepatitis A, Unspecified 06/19/1997 Hepatitis B Adult 09/11/1992 INFLUENZA, SPLIT VIRUS, TRIVALENT PF 06/10/2025, 05/30/2024 Influenza Quadrivalent MDCK Preservative Free IM 05/30/2019 Influenza Quadrivalent Prese rvative Free IM 05/14/2023,05/14/2022,05/27/2020,05/27,07/20/2018,04/28/2017 Influenza Quadrivalent w/ Pr eservative IM 05/09/2018 Influenza, Unspecified Formulation 06/08/2021, MMR 11/29/1989 Measles 09/09/1970 Meningococcal ACWY, unspecif ied formulation 08/13/1997 Polio - OPV 09/09/1997 Polio, Unspecified Formulation 1,02/14/1969,1966,07/22 Rabies Unspecified Formulation 09/09/1997,1997 Td, unspecified formulation 12/15/1990, 1 Tdap 09/07/2018,08/12/2015,01/23/2013 Typhoid, ViCPs 06/19/1997 Family History Medical History Relation Comments Aortic aneurysm Father Hypertension Father Alzheimer's disease Mother Hypertension Mother Relation Status Comments Father Alive Mother Alive Social History Tobacco Use Types Packs/Day Years Used Date Smoking Tobacco: Never Smokeless Tobacco: Never Tobacco Cessation:Counseling Given: Not Answered Alcohol Use Standard Drinks/Week Comments Yes 5 [...] PM EDT Sexual Orientation Not on file Last Filed Vital Signs Vital Sign Reading Time Taken Comments Blood Pressure 118/70 08/07/2024 8:53 AM EST Pulse 47 08/07/2024 8:53 AM EST Temperature 36.8 C (98.2 F) 11/09/2023 8:48 AM EDT Respiratory Rate 18 11/09/2023 8:48 AM EDT Oxygen Saturation 97% 11/09/2023 8:48 AM EDT Inhaled Oxygen Concentration - - Weight 63.8 kg (140 lb 9.6 oz) 08/07/2024 8:53 A M EST Height 156.2 cm (5' 1.5 ) 08/07/2024 8:53 AM EST Body Mass Index 26.14 08/07/2024 8:53 AM EST Plan of Treatment Health Maintenance Due Date Last Done Comments DEPRESSION SCREENING 1978 PAP SMEAR 1987 MAMMOGRAM 2006 COLOGUARD 2011 COLONOSCOPY 2011 COLORECTAL CANCER SCREENING 2011 FIT TEST 2011 FOBT 2011 SIGMOIDOSCOPY 2011 VIRTUAL COLONOSCOPY 2011 PNEUMOCOCCAL VACCINES (50+ years) (1 of 1 - PCV) 2016 ZOSTER VACCINES (1 of 2) 2016 SCREENING FOR DIABETES 12/03/2023 12/02/2020 COVID-19 VACCINE ( season) 2025 08/23/2023, 08/06/2021, 09/05/2020, Additional history exists LIPID PANEL 12/02/2025 12/02/2020 Adult Td,Tdap Booster 09/07/2028 09/07/2018 , 08/12/2015, 01/23/2013, Additional history exists RSV VACCINE (1 - 1-dose 75+ series) 2041 HEPATITIS A VACCINES Aged Out 06/19/1997 No long er eligible based on patient's age to complete this topic MENINGOCOCCAL VACCINES (ACWY) Aged Out 08/13/1997 No longer eligible based on patient's age to complete this topic HEPATITIS C SCREENING Completed 02/14/2022, 022 HIV ONE-TIME SCREENING (18-65 YEARS) Completed 02/14/2022 SMOKING STATUS SCREENING (Once After 26 Yrs) Completed 08/07/2024 INFLUENZA VACCINE Completed 06/10/2025, , 05/14/2023, Additional history exists HIB VACCINES Aged Out No longer eligi ble based on patient's age to complete this topic MENINGOCOCCAL VACCINES (B) Aged Out N o longer eligible based on patient's age to complete this topic Medical Devices Not on file Procedures Procedure Name Priority Date/Time Associated Diagnosis Comments XR HAND 3 OR MORE VIEWS (RIGHT) Urgent/patient waiting 07/22/2025 10:08 AM EST Hand injury, right, initial encounter HEPATITIS C ANTIBODY, QUALITATIVE Routine 02/14/2022 2:15 PM EDT LIPID PANEL Routine 12/02/2020 9:07 AM EDT Lower extremity pain, right from Last 3 Months or Most Recently Relevant to Health Maintenance Results * XR HAND 3 OR MORE [...] IMG XR UPPER EXTREMITY Fin al Result * Hepatitis C antibody, qualitative (02/14/2022 2:15 PM EDT) HCV NON-REACTIV E NON-REACTI VE [facility] Blood 02/14/2022 2:15 PM EDT 02/14/2022 5:38 PM EDT us Rafa Jones MD LAB BLOOD BKR ORDERABLES F inal Result Performing Organization Address [facility] Co de Phone Number [address] [address] * (ABNORMAL) Lipid panel (12/02/2020 9:07 AM EDT) HDL 78 mg/dL [facility] Comment: Interpretation <40 mg/dL: Low HDL cholesterol (major risk factor for CHD) Greater than or equal to 60 mg/dL: High HDL cholesterol ( negative risk factor for CHD) HDL - cholesterol is affected by a number of factors, e.g. smoking, excerise, hormones, sex and age. CHOLESTEROL 221 0 - 240 mg/dL [facility] TRIGLYCERIDES 65 30 - 160 mg/dL [facility] LDL 130(H) 50 - 129 mg/dL [facility] Comment: LDL levels in terms of risk for coronary heart disease: <100 mg/dL: Optimal 100-129 mg/dL: Near or above optimal 130-159 mg/dL: Borderline high 160-189 mg/dL: High >190 mg/dL: Very High CARDIAC RISK RATIO 2.8(L) 3.3 - 4.4 [facility] Blood 12/02/2020 9:07 AM EDT 12/02/2020 9:14 AM EDT us Nica Jennings MD LAB BLOOD BKR ORDERABLES Estefany l Result Performing Organization Address [facility]/ZIP Co de Phone Number [address] [address] from Last 3 Months or Most Recently Relevant to Health Maintenance Insurance [facility] STATE PPO OUT [facility] PPO [facility] PPO [place]UE [place] OUT OF STATE PPO BL[employer] [place] OUT OF STATE PPO [employer] OUT OF STATE PPO Care Teams Hospice Superintendent Relationship Specialty Start Date End Date Nica Jennings MD [address] [place] [address] PCP - General Internal Medicine 07/22/25 Additional Source Comments The information contained in this document represents components of the legal health record. It is not the complete legal health record.[facility]
--- OUTSIDE RECORDS SUMMARY | 2025-07-25 17:02 | XMS_ITS | Encounter Summary ---
Author Organization [facility] Address [address] [place] [address] Phone Care Team Providers Care Wall To Wall Carpet Installer Name Role Phone Unknown, Unknown Primary Care Provider Adriana Torrez DIRECTOR OF ADULT EPILEPSY Primary Care Provider Ncia Jennings MD Primary Care Provider [phone] Nica Jennings MD Primary Care Provider [phone] Encounter Details Date Type Department Care Team (Late st Contact Info) Description 05/01/2019 Transcribe Orders [facility] [address] [place] [address] Cyn Diallo, [facility] [address] [facility], [address] [place] [address] [email or web address] Pre-employment examination (Primary Dx) Social History Tobacco Use Types Packs/Day Years Used Date Smoking Tobacco: Never Assessed Comments Unknown Sex and Gender Information Value Date Recorded Sex Assigned at Female 11/08/2024 8:20 PM EDT Legal Sex Female 4:51 PM EDT Gender Identity Female 11/08/2024 8:20 PM EDT Sexual Orientation Not on file documented as of this encounter Plan of Treatment Not on file documented as of this encounter Results * Rubella antibody, IgG (05/01/2019 2:16 PM EDT) Rubella Ab, IgG Positive Positive [facility] Blood (Blood) 05/01/2019 2:1 6 PM EDT 05/03/2019 12:58 PM EDT Cyn Diallo CIRCUS TRAINER LAB BLOOD BKR ORDERABLES Final Result Performing Organization Address [facility]/ZIP Co de Phone Number [address] [address] * Mumps antibody, IgG (05/01/2019 2:16 PM EDT) MUMPS IGG AB Positive Positive [facility] Blood (Blood) 05/01/2019 2:1 6 PM EDT 05/03/2019 12:58 PM EDT Cyn Diallo [facility] LAB BLOOD BKR ORDERABLES Final Result Performing Organization Address [facility] Co de Phone Number [address] [address] * Measles antibody, IgG (05/01/2019 2:16 PM EDT) RUBEOLA IGG Positive Positive [facility] Blood (Blood) 05/01/2019 2:1 6 PM EDT 05/03/2019 12:58 PM EDT Cyn Diallo [facility] LAB BLOOD BKR ORDERABLES Final Result Performing Organization Address [facility] Co de Phone Number [address] [address] documented in this encounter Visit Diagnoses Diagnosis Pre-employment examination- Primary documented in this encounter Additional Health Concerns Infection Onset Date Last Indicated Resolved Time CoV-Exposed Comment:From [employer]Pass 08/10/2021 08/10/2021 08/25/2021 1:23 A M EST CoV-Risk 01/01/2022 01/01/2022 01/12/2022 1:22 AM EDT CoV-Exposed Comment:Recent close contact documented in the COVID-19 PCR/PRO order 01/01/2022 01/01/2022 01/22/2022 1:21 AM E DT CoV-Risk 04/08/2022 04/08/2022 04/08/2022 12:1 6 PM EDT COVID-19 04/08/2022 04/08/2022 04/29/2022 1:21 AM EDT documented as of this encounter Care Teams Wall To Wall Carpet Installer Relationship Specialty Start Date End Date Unknown, Unknown, MD PCP - General 05/01/19 01/28/20 Adriana Estevez NP [address] [place] [address] [place] [address] [email or web address] PCP - General Family Medicine 01/29/20 Nica Jennings MD [address] [place] [address] PCP - General Internal Medicine 08/11/20 07/21/25 Nica Jennings MD [address] [place] [address] PCP - General Internal Medicine 07/22/25 documented as of this encounter Additional Source Comments The information contained in this document represents components of the legal health record. It is not the complete legal health record.[facility]
--- OUTSIDE RECORDS SUMMARY | 2025-07-25 17:02 | XMS_ITS | Encounter Summary ---
Author Organization [facility] Address [address] [place] [address] Phone Care Team Providers Care Cheese Processor Name Role Phone Unknown, Unknown Primary Care Provider Adriana Torrez HANDBAG FINISHER Primary Care Provider Nica Jennings MD Primary Care Provider [phone] Nica Jennings MD Primary Care Provider [phone] Encounter Details Date Type Department Care Team (Late st Contact Info) Description 05/01/[address] [facility] at [address] [address] Cyn Diallo, FINANCIAL ASSISTANT [address] [facility], [address] [place] [address] [email or web address] Social History Tobacco Use Types Packs/Day Years [...] on file documented as of this encounter Visit Diagnoses Not on filedocumented in this encounter Additional Health Concerns Infection [...] documented as of this encounter Care Teams Cheese Processor Relationship Specialty Start Date End Date Unknown, Unknown, MD PCP - General 05/01/19 01/28/20 Adriana Estevez, SHWETA [address] [place] [address] [place] [address] [email or web address] PCP - General Family Medicine 01/29/20 Nica Jennings MD [address] [place] [address] PCP - General Internal Medicine 08/11/20 07/21/25 Nica Jennings MD [address] [place] [id number] PCP - General Internal Medicine 07/22/25 documented as of this encounter Additional Source Comments The information contained in this document represents components of the legal health record. It is not the complete legal health record.[facility]
--- OUTSIDE RECORDS SUMMARY | 2025-07-25 17:02 | XMS_ITS | Encounter Summary ---
Author Organization [facility] Address [address] [address] Phone Care Team Providers Care Head Resident Name Role Phone Nica Jennings MD Primary Care Provider [phone] Nica Jennings MD Primary Care Provider [phone] Encounter Details Date Type Department Care Team (Late st Contact Info) Description 02/14/2022 Transcribe Orders [facility] Specimen Processing [address] [place] [address] Rafa Jones MD [address] [place] [address] [email or web address] Social History Tobacco Use Types Packs/Day Years [...] Infection Onset Date Last Indicated Resolved Time CoV-Risk 04/08/2022 04/08/2022 04/08/2022 12:1 6 PM EDT COVID-19 04/08/2022 04/08/2022 04/29/2022 1:21 AM EDT documented as of this encounter Care Teams Head Resident Relationship Specialty Start Date End Date Nica Jennings MD [facility] [place] [address] PCP - General Internal Medicine 08/11/20 07/21/25 Nica Jennings MD [address] [place] [address] PCP - General Internal Medicine 07/22/25 documented as of this encounter Additional Source Comments The information contained in this document represents components of the legal health record. It is not the complete legal health record.[facility]
== END 2025-07-25 14:03 | disposition home or self-care (01) ==
LOC: HO.HMCC 13:06
PROVIDERS: PCP Internal Medicine; Visit Provider Internal Medicine
DX: Z00.00 Encounter for general adult medical examination without abnormal findings (principal); E78.5 Hyperlipidemia, unspecified

== ENCOUNTER → 2025-07-25 13:05 | Outpatient (BNVA) | payer BC, SELFPAY | PROVIDERS: PCP Internal Medicine; Visit Provider Internal Medicine | DX: Z00.00 Encounter for general adult medical examination without abnormal findings (principal); E78.5 Hyperlipidemia, unspecified | CPT/HCPCS: 96127 ==